=== PATIENT | female | born 1975 | race Caucasian/White ===

== ENCOUNTER 2022-01-17 12:24 | Emergency (ER) | payer MEDICAID ==
[~2022-01-17] VITALS: Ht 147.3 cm; Wt 47.0 kg
[2022-01-17] MEDS ORDERED: MetroNIDAZOLE 500 MG TABLET PO ONE (14:15)
[2022-01-17 14:56] VITALS: BP 130/80
[2022-01-17 15:45] LABS: APPEARANCE,URINE CLEAR (CLEAR); BILIRUBIN,URINE NEGATIVE (NEGATIVE); GLUCOSE, URINE (UA) NEGATIVE (NEGATIVE); KETONES,URINE NEGATIVE (NEGATIVE); LEUKOCYTE ESTERASE ,URINE MODERATE (NEGATIVE); NITRATE,URINE NEGATIVE (NEGATIVE); OCCULT BLOOD,URINE SMALL (NEGATIVE); PROTEIN,URINE NEGATIVE (NEGATIVE); SPECIFIC GRAVITIY, URINE 1.016 (1.003-1.030); UROBILINOGEN,URINE <=1.0 mg/dL (<=1.0)
[2022-01-17 15:53] LABS: BACTERIA,URINE Few /HPF (None Seen); SQUAMOUS EPITHELIAL CELL,UR Few /LPF (None Seen)
== END 2022-01-17 14:58 | disposition home or self-care (01) ==
LOC: EMS 12:30
DX: N76.2 Acute vulvitis (principal); N39.0 Urinary tract infection, site not specified; Z88.6 Allergy status to analgesic agent
CPT/HCPCS: 81001; 81002; 87086; 87491; 87591; 99283